=== PATIENT | male | born 1955 | race Caucasian/White ===

== ENCOUNTER 2017-01-31 22:27 | Emergency (ER) | payer MEDICARE, BC ==
[~2017-01-31] VITALS: Ht 160 cm; Wt 64.0 kg
[~2017-01-31 22:27] MED LIST: CARV12.579 PO; CEPH-443 PO; CLON1TAB3 PO; CYCL15DR13 LEFT EYE; ENAL20TA PO; FENO145T19 PO; GLIP5TAB13 PO; IBUP-1542 PO; MTF1000T PO; OXYC-281 PO; PRAS10TA6 PO
[2017-01-31 22:30] VITALS: Ht 160 cm; Wt 64.0 kg
[2017-02-01] MEDS ORDERED: SOD CHLORIDE 0.9% 500 ML IV STA (00:46)
--- NOTE | 2017-02-01 01:13 | RADRPT ---
PROCEDURE: CHEST - 1 VIEW CLINICAL INDICATION: 61-year-old male with chest pain. TECHNIQUE: A single frontal AP upright portable view of the chest was performed. The images were reviewed on a PACS workstation. COMPARISON: Chest x-ray November 20, 2008. FINDINGS: The cardiomediastinal silhouette is within normal limits. The aortic arch is mildly calcified. Ther e is a small ovoid right upper lung zone nodule measuring 4 mm most likely representing a granuloma and without significant interval change. There is a shallow inspiration. There is mild left basila r subsegmental atelectasis and/or scarring. There is no evidence for an infiltrate. There is no ev idence for congestive heart failure. There is no evidence for pneumothorax. The osseous structures a re intact. IMPRESSION: 1. Mildly calcified thoracic aortic arch. 2. Small right upper lung zone 4 mm granuloma. 3. Mild left basilar subsegmental atelectasis and/or scarring. .Rocky Vance MD, MD Date Time Electronically viewed and signed by .Rocky Vance MD, on 02/01/2017 01:13 .Linda/
[2017-02-01 01:19] LABS: ADD SCAN DIFF NO
[2017-02-01 01:21] LABS: BASOPHILS % 0.3 % (0.0-2.0); EOSINOPHILS # 0.3 10^3/ul (0.0-0.5); EOSINOPHILS % 4.1 % (0.0-7.0); HEMATOCRIT 41.5 % (42.0-52.0); LYMPHOCYTES # 2.8 10^3/ul (0.8-2.9); LYMPHOCYTES % 41.8 % (15.0-51.0); MEAN CORPUSCULAR HEMOGLOBIN 30.4 pg (29.0-33.0); MEAN CORPUSCULAR HGB CONC 33.7 g/dl (32.0-37.0); MEAN CORPUSCULAR VOLUME 90.2 fl (82.0-101.0); MEAN PLATELET VOLUME 10.5 fl (7.4-10.4); MONOCYTE # 0.5 10^3/ul (0.3-0.9); NEUTROPHILS % 45.6 % (39.0-77.0); PLATELET COUNT 243 10^3/UL (140-415); RED CELL DISTRIBUTION WIDTH 12.7 % (11.5-14.5); WHITE BLOOD COUNT 6.6 10^3/ul (4.8-10.8)
[2017-02-01 01:36] LABS: INR 0.96; PROTIME 12.8 Sec (12.2-14.2)
[2017-02-01 01:37] LABS: PARTIAL THROMBOPLASTIN TIME 24.7 Sec (25.0-35.0)
[2017-02-01 01:45] LABS: ALBUMIN 5.1 g/dl (3.3-4.9); ALBUMIN/GLOBULIN RATIO 1.37; BILIRUBIN,INDIRECT 0.2 mg/dl (0-1.1); BILIRUBIN,TOTAL 0.2 mg/dl (0.2-1.3); CALCIUM 10.7 mg/dl (8.4-10.2); CREATININE 0.89 mg/dl (0.61-1.24); POTASSIUM 4.6 mmol/L (3.5-5.1); TOTAL PROTEIN 8.8 g/dl (6.1-8.1)
[2017-02-01 01:55] LABS: TROPONIN-I 0.017 ng/ml (0.00-0.12)
--- NOTE | 2017-02-01 02:37 | ERD ---
ER Documentation Chief Complaint Date/Time DATE: 02/01/17 TIME: 02:36 Chief Complaint Palpitations at 1700 today hx of 2 stents HPI This is a 61-year-old male complains of palpitations at 4:00 today. He denies any chest pain. Denies any nausea vomiting fevers chills. Denies any shortness of breath. Denied any other current complaints. ROS All systems reviewed and are negative except as per history of present illness. Medications Home Meds Active Scripts Ibuprofen* (Ibuprofen*) 600 Mg Tablet, 600 MG PO TID for PAIN AND/OR INFLAMMATION, #30 TAB Prov:CHIOMA DASILVA MD 12/17/15 Cephalexin* (Keflex*) 500 Mg Capsule, 500 MG PO QID for 5 Days, CAP Prov:CHIOMA DASILVA MD 12/17/15 Cyclopentolate Hcl (Cyclopentolate Hcl) 15 Ml Drops, 1 DROP LEFT EYE TID, #3 EA Prov:CHIOMA DASILVA MD 12/17/15 Reported Medications Fenofibrate Nanocrystallized* (Fenofibrate*) 145 Mg Tablet, 145 MG PO DAILY, TAB 12/17/15 Prasugrel Hydrochloride* (Effient*) 10 Mg Tablet, 10 MG PO DAILY, TAB 12/17/15 Metformin* (Glucophage*) 1,000 Mg Tablet, 1000 MG PO BID, TAB 12/17/15 Carvedilol* (Carvedilol*) 12.5 Mg Tablet, 12.5 MG PO BID, TAB 12/17/15 Glipizide* (Glipizide*) 5 Mg Tablet, 5 MG PO BID, TAB 12/17/15 Enalapril Maleate* (Enalapril Maleate*) 20 Mg Tablet, 20 MG PO DAILY, TAB 12/17/15 Discontinued Reported Medications Clonazepam* (Clonazepam*) 1 Mg Tablet, 1-2 MG PO QHS, TAB 12/17/15 Clonazepam* (Clonazepam*) 1 Mg Tablet, 1 MG PO Q8H Y for ANXIETY, TAB 12/17/15 Discontinued Scripts Oxycodone Hcl-Acetaminophen* (Percocet*) 5-325 Mg Tablet, 1 TAB PO TID Y for PAIN, #12 TAB Prov:CHIOMA DASILVA MD 12/17/15 Allergies Allergies: Uncoded Allergies: CONTRAST MEDIUM (Allergy, Mild, 02/01/17) PMhx/Soc History of Surgery: Yes (stent placement x 2 2006) Anesthesia Reaction: No Hx Neurological Disorder: No Hx Respiratory Disorders: No Hx Cardiac Disorders: Yes (AL x 2) Hx Psychiatric Problems: No Hx Alcohol Use: No Hx Substance Use: No Hx Tobacco Use: No Smoking Status: Never smoker Physical Exam Vitals Vital Signs Date Time Temp Pulse Resp B/P Pulse Ox O2 Delivery O2 Flow Rate FiO2 02/01/17 01:00 73 16 133/72 98 Room Air 01/31/17 22:30 97.8 79 16 140/73 97 Physical Exam Const: [] Head: Atraumatic Eyes: Normal Conjunctiva ENT: Normal External Ears, Nose and Mouth. Neck: Full range of motion..~ No meningismus. Resp: Clear to auscultation bilaterally Cardio: Regular rate and rhythm, no murmurs Abd: Soft, non tender, non distended. Normal bowel sounds Skin: No petechiae or rashes Back: No midline or flank tenderness Ext: No cyanosis, or edema Neur: Awake and alert Psych: Normal Mood and Affect Result Diagram: 02/01/179902/01/17 010 Results 24 hrs Laboratory Tests Test 02/01/17 01:00 White Blood Count 6.610^3/ul Red Blood Count 4.6010^6/ul Hemoglobin 14.0g/dl Hematocrit 41.5% Mean Corpuscular Volume 90.2fl Mean Corpuscular Hemoglobin 30.4pg Mean Corpuscular Hemoglobin Concent 33.7g/dl Red Cell Distribution Width 12.7% Platelet Count 72223^3/UL Mean Platelet Volume 10.5fl Neutrophils % 45.6% Lymphocytes % 41.8% Monocytes % 8.0% Eosinophils % 4.1% Basophils % 0.3% Nucleated Red Blood Cells % 0.0/100WBC Neutrophils # 3.010^3/ul Lymphocytes # 2.810^3/ul Monocytes # 0.510^3/ul Eosinophils # 0.310^3/ul Basophils # 0.010^3/ul Nucleated Red Blood Cells # 0.010^3/ul Prothrombin Time 12.8Sec Prothrombin Time Ratio 1.0 INR International Normalized Ratio 0.96 Activated Partial Thromboplast Time 24.7Sec Sodium Level 143mmol/L Potassium Level 4.6mmol/L Chloride Level 106mmol/L Carbon Dioxide Level 24mmol/L Anion Gap 18 Blood Urea Nitrogen 20mg/dl Creatinine 0.89mg/dl Glucose Level 233mg/dl Calcium Level 10.7mg/dl Total Bilirubin 0.2mg/dl Direct Bilirubin 0.00mg/dl Indirect Bilirubin 0.2mg/dl Aspartate Amino Transf (AST/SGOT) 26IU/L Alanine Aminotransferase (ALT/SGPT) 36IU/L Alkaline Phosphatase 59IU/L Troponin I 0.017ng/ml B-Type Natriuretic Peptide 328PG/ML Total Protein 8.8g/dl Albumin 5.1g/dl Globulin 3.70g/dl Albumin/Globulin Ratio 1.37 Current Medications Medications (Trade) Dose Ordered Sig/Familia Route PRN Reason Start Time Stop Time Status Last Admin Dose Admin Sodium Chloride (NS) 500 ml @ 500 mls/hr Q1H STAT IV 02/01/17 00:46 02/01/17 01:45 DC 02/01/17 01:13 Procedures/MDM EKG: Rate/Rhythm: Normal Sinus Rhythm QRS, ST, T-waves: No changes consistent w/ acute ischemia Impression: No evidence of ischemia or arrhythmia Chest X-ray 1V Interpreted by me: Soft Tissue: No acute abnormalities Bones: No acute abnormalities Mediastinum/Cardiac Silhouette/Lungs: No acute abnormalities Patient's thoracic symptoms have stabilized while in the department and are stable for outpatient follow up. Exam and work up not consistent w/ ischemia, arrhythmia, PE or dissection. Patient is a normal EKG and serial normal rhythm strips in the ER. Continues to deny chest pain. He has not had any palpitations since that episode at 4: 00. At this point clinically stable for outpatient management. Told to return immediately for any return of symptomology. Otherwise follow-up with outpatient cardiology. Departure Diagnosis: Primary Impression: Palpitations Condition: Stable Patient Instructions: BRYAN Farooq Feb 01, 2017 02:37
[2017-02-01 02:40] VITALS: BP 131/78; PULSE 71; RESP 18
== END 2017-02-01 03:00 | disposition home or self-care (01) ==
LOC: E/R 22:27
DX: R00.2 Palpitations (principal); R07.9 Chest pain, unspecified; Z98.61 Coronary angioplasty status
CPT/HCPCS: 36415; 71010; 80053; 83880; 84484; 85025; 85610; 85730; 93005; 99285; J7040